=== PATIENT | female | born 1955 | race Caucasian/White ===

== ENCOUNTER → 2018-02-18 | Outpatient (CLI) | payer OTHER ==
[~2018-02-18] MED LIST: CARISOPRODOL 3350 MG PO; CRANBERRY400 MG; FLEXERIL PO; MULTIVITAMINS1 EAC7; OXYCODON-ACETA1 EAC1 PO; POTASSIUM99 M1; SINGULAIR 10 MG10 MG; VERTICALM25 MG PO; VITAMIN D400 UNI1; ZYRTEC10 M2; [UNRECOGNIZED DRUG - OTHER]
== END ==
LOC: M.RAD 02-14 08:15
DX: Z12.31 Encounter for screening mammogram for malignant neoplasm of breast (principal)

== ENCOUNTER 2019-03-31 09:56 | Observation (INO) | payer MEDICARE, OTHER ==
[~2019-03-31] VITALS: Ht 177.8 cm; Wt 68.4 kg
[~2019-03-31 09:56] MED LIST changes: -MULTIVITAMINS1 EAC7; +MULTIVITAMINS1 EAC7 PO; -SINGULAIR 10 MG10 MG; +SINGULAIR 10 MG10 MG PO; -ZYRTEC10 M2; +ZYRTEC10 M2 PO
[2019-03-31 10:02] VITALS: BP 117/82
[2019-03-31] MEDS ORDERED: XANAX 0.5 MG0.5 MG PO (10:06)
[2019-03-31] MEDS ORDERED: FISH OIL 1,001000 M2 PO (10:07)
[2019-03-31] MEDS ORDERED: COLLAGEN PLUS1 EACH PO (10:07)
[2019-03-31] MEDS ORDERED: BREO ELLIPTA 11 EACH INH (10:07)
[2019-03-31] MEDS ORDERED: PROAIR HFA8.5 GM INH (10:07)
[2019-03-31 10:27] LABS: ABSOLUTE EOSINOPHILS 0.3 thou/uL (0.0-0.7); ABSOLUTE LYMPHOCYTES 0.9 thou/uL (0.8-5.3); ABSOLUTE MONOCYTES 0.6 thou/uL (0.0-1.2); ABSOLUTE NEUTROPHILS 2.5 thou/uL (1.6-8.1); BASOPHILS 0.6 %; EOSINOPHILS 7.8 %; HEMATOCRIT 45.4 % (37.0-47.0); HEMOGLOBIN 15.4 gm/dL (12.0-15.0); LYMPHOCYTES 20.2 %; MCH 31.8 pg (26.0-34.0); MCV 93.5 fL (80.0-100.0); MONOCYTES 14.9 %; MPV 9.1 fl. (7.2-11.1); NUCLEATED RBCS 0 /100WBC; PLATELET COUNT* 165 thou/uL (150-400); POLYS 56.5 %; RBC 4.86 mil/uL (4.20-5.00); RDW-CV 13.7 % (10.5-14.5); WBC 4.4 thou/uL (4.0-11.0)
[2019-03-31 10:39] LABS: ANION GAP 7 mmol/L (7-16); BUN 21 mg/dL (7-18); CALCIUM 9.9 mg/dL (8.5-10.1); CHLORIDE 101 mmol/L (98-107); CO2 30 mmol/L (21-32); CREATININE 1.2 mg/dL (0.6-1.3); GLUCOSE 99 mg/dL (70-99); POTASSIUM 4.4 mmol/L (3.5-5.1); SODIUM 138 mmol/L (136-145)
[2019-03-31 10:54] LABS: ALBUMIN 4.2 g/dL (3.4-5.0); ALKALINE PHOSPHATASE 86 U/L (46-116); CK-MB MASS 2.2 ng/mL (<0.5-3.6); LIPASE 121 U/L (73-393); MAGNESIUM 1.7 mg/dL (1.8-2.4); NT-PRO BRAIN NAT PEPTIDE 900 pg/mL (<300); SGOT 33 U/L (15-37); SGPT 35 U/L (30-65); TOTAL BILIRUBIN 0.9 mg/dL (<0.1-1.0); TOTAL PROTEIN 8.9 g/dL (6.4-8.2); TROPONIN-I LEVEL <0.06 ng/mL (<0.06)
[2019-03-31 11:03] LABS: APTT 26.6 Seconds (25.0-31.3); PROTIME 10.5 Seconds (9.20-11.50)
--- NOTE | 2019-03-31 13:30 | NUR ---
CARDIZEM DRIP INCREASED TO 15ML/HR VIA VERBAL ORDERS FROM DR STERLING
[2019-03-31 14:58] VITALS: BP 106/80
[2019-03-31 15:16] VITALS: BP 110/78
--- NOTE | 2019-03-31 16:20 | NUR ---
PATIENT PRESENTED TO 219 PER CART WITH AA EPISODE OF A FIB WITH RVR. PATIENT IS AELRT AND ORIENTED X 4. SHE DENIES CHEST PAIN AND SOA ON ARRIVAL. BEDSIDE ECHO PERFORMED. PATIENT ADMITTED AND ORIENTED TO THE ROOM. IV CARDIZEM IS INFUSING AT 15 ML/HR. PATIENT PLACED ON TELE MONITOR. TELE SHOWS CONTINUED AFIB. WILL CONTINUE TO MONITOR VS AND ASSESSMENTS.
--- NOTE | 2019-03-31 16:25 | EKG ---
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 Head: [facility] [place] 1955 Requested By: Rey Francisco Order Number: [id number] MD: Shin Bryan Measurements Intervals [place] Rate: 116 P: ND: QRS: 67 QRSD: 116 T: 67 QT: 368 QTc: 512 Interpretive Statements Atrial fibrillation with rapid ventricular response rate with aberrancy Baseline wander in lead(s) I,II,aVR Compared to ECG 02/18/2013 11:53:37 Sinus rhythm no longer present Ventricular premature complex(es) no longer present Incomplete right bundle-branch block no longer present Electronically Signed On 03-31-2019 16:25:02 CDT by Shin Bryan [email or web address] <ELECTRONICALLY SIGNED> By: Shin Bryan MD, FACC 03/31/19 1625 1004 1004 Shin Bryan MD, FACC /EPI
--- NOTE | 2019-03-31 16:42 | 2DMMODE ---
[place] [address] 2 D/M-MODE ECHOCARDIOGRAM Name: SALMA VELAZQUEZ Room: [address] ADM IN [facility]#: [id number] Admission: 03/31/19 Attend Phys: Yefri Guardado Discharge: Date of : 53 Date of Service: 03/31/19 1641 Report #: [id number] THIS REPORT FOR: //name// APPROVED REPORT Study performed: 03/31/2019 15:28:50 EXAM: Comprehensive 2D, Doppler, and color-flow Echocardiogram Patient Location: In-Patient Room #: 219 Status: routine BSA: 1.82 HR: 61 bpm BP: 106/80 mmHg Rhythm: Atrial Fibrillation Other Information Study Quality: Good Indications Atrial Fibrillation 2D Dimensions IVSd: 9.29 (7-11mm) LVOT Diam: 20.18 (18-24mm) LVDd: 44.71 mm PWd: 10.68 (7-11mm) LVDs: 22.64 (25-40mm) Aortic Root: 33.32 mm Volumes Left Atrial Volume (Systole) LA ESV Index: 25.50 mL/m2 Aortic Valve AoV Peak Paul.: 1.15 m/s AO Peak Gr.: 5.32 mmHg LVOT Max P.89 mmHg AO Mean Gr.: 2.40 mmHg LVOT Mean P.24 mmHg LVOT Max V: 0.85 m/s AO V2 VTI: 18.16 cm LVOT Mean V: 0.50 m/s FRANK (VTI): 3.15 cm2 LVOT V1 VTI: 17.90 cm Mitral Valve E/A Ratio: 1.70 MV Decel. Time: 190.62 ms MV E Max Paul.: 0.66 m/[place] [address] 2 D/M-MODE ECHOCARDIOGRAM Name: SALMA VELAZQUEZ Room: [address] IN ..#: [id number] Admission: 03/31/19 Attend Phys: Yefri Guardado Discharge: Date of : 53 Date of Service: 03/31/19 1641 Report #: [id number] MV PHT: 55.28 ms MVA (PHT): 3.98 cm2 TDI E/Lateral E': 5.08 E/Medial E': 5.50 Medial E' Paul.: 0.12 m/s Lateral E' Paul.: 0.13 m/s Pulmonary Valve PV Peak Paul.: 0.80 m/s PV Peak Gr.: 2.56 mmHg Tricuspid Valve RAP Estimate: 5.00 mmHg TR Peak Gr.: 26.65 mmHg RVSP: 31.00 mmHg PA Pressure: 31.00 mmHg Left Ventricle The left ventricle is normal size. There is normal LV segmental wall motion. There is normal left ventricular wall thickness. Left ventricular systolic function is normal. LVEF is 55-60%. This study is not technically sufficient to allow evaluation of the LV diastolic function due to atrial fibrillation. Right Ventricle The right ventricle is normal size. The right ventricular systolic function is normal. Atria The left atrium size is normal. The right atrium size is normal. Aortic Valve The aortic valve is normal in structure. No aortic regurgitation is present. There is no aortic valvular stenosis. Mitral Valve The mitral valve is normal in structure. Trace mitral regurgitation. No evidence of mitral valve stenosis. Tricuspid Valve The tricuspid valve is normal in structure. Mild tricuspid regurgitation. The RVSP is 30-35 mmHg. Pulmonic Valve The pulmonary valve is normal in structure. [place] [address] 2 D/M-MODE ECHOCARDIOGRAM Name: SALMA VELAZQUEZ Room: [address] IN [facility]#: [id number] Admission: 03/31/19 Attend Phys: Yefri Guardado Discharge: Date of : 53 Date of Service: 03/31/19 1641 Report #: [id number] Great Vessels The aortic root is normal in size. IVC is normal in size and collapses >50% with inspiration. Pericardium There is no pericardial effusion. <Conclusion> The left ventricle is normal size. There is normal left ventricular wall thickness. Left ventricular systolic function is normal. LVEF is 55-60%. Trace mitral regurgitation. Mild tricuspid regurgitation. The RVSP is 30-35 mmHg. <ELECTRONICALLY SIGNED> By: Shin Bryan MD, FACC 03/31/191640 40 40 Shin Bryan MD, FACC /INF
[2019-03-31 19:40] VITALS: BP 115/66
[2019-04-01] VITALS: BP 100/53
[2019-04-01 03:53] VITALS: BP 116/69
--- NOTE | 2019-04-01 07:49 | NUR ---
VSS. SEE MAR. SEE CHARTING. FALL PRECAUTIONS IN PLACE. HOURLY ROUNDING FOR CHARTING.
[2019-04-01 08:20] VITALS: BP 131/90
--- NOTE | 2019-04-01 11:27 | NUR ---
INITIAL ASSESSMENT: Pt evaluated for d/c planning needs. Reviewed chart and spoke with nurse and spouse. Pt is currently off unit for testing. Pt lives in house with spouse and was independent with ADL's prior to admission to the hospital. Pt remains active in the community and is still driving. Pt and her are retired. Pt uses no DME and has not had home health. Pt plans on returning home on d/c from hospital. Will remain available to assist as needed.
[2019-04-01 16:02] VITALS: BP 112/81
--- NOTE | 2019-04-01 16:19 | NUR ---
PT SOMEWHAT PROGRESSING TOWARDS GOALS THIS SHIFT. COMPLETED STRESS TEST. TELE REMAINS SR WITH MULTIPLE PAC'S AND PVC'S. MEDICATIONS CHANGED TO ORAL AMIODARONE THIS SHIFT. NO OTHER CONCERNS AT THIS TIME. CLWR. WCTM.
--- NOTE | 2019-04-01 16:25 | CARDNUC ---
[place] [address] CARDIAC NUCLEAR IMAGING REPORT Name: SALMA VELAZQUEZ Room: [address] IN [facility]#: [id number] Admission: 03/31/19 Attend Phys: Yefri Guardado Discharge: Date of : 53 Date of Service: 04/01/19 1625 Report #: [id number] THIS REPORT FOR: //name// APPROVED REPORT Imaging Protocol: Rest Tc-99m/Stress Tc-99m 1 day Study performed: 03/31/2019 14:46:00 Indication: Atrial Fibrillation Patient Location: In-Patient Room #: 219 Stress Tech: Sabi Davis Stress Nurse: Suzan Giraldo RN NM Tech:SIMBA Croft Ht: 5 ft 10 in Wt: 145 lbs BSA: 1.82 m2 BMI: 20.80 Medical History Medical History: mitral valve prolapse Medications: apixaban, amiodarone Allergies: n Cardiac Risk Factors: Age, FHX of CAD Exercise History: Physically active Resting Data Rest SPECT myocardial perfusion imaging was performed in supine position 30 minutes following the intravenous injection of 11.3 mCi of Tc-99m Sestamibi. Time of rest injection: 09:30 The images were gated to evaluate regional wall motion and calculate left ventricular ejection fraction. Administration Route: IV Administration Site: Right Arm Pharmacologic Stress Pharmacologic stress test was performed by injecting Regadenoson 0.4 mg IV push over 10-15 seconds immediately followed by the intravenous injection of 34.6 mCi of Tc-99m Sestamibi. Time of stress injection: 11:00 Administration Route: IV Administration Site: Right Arm Heart Rate at time of stress injection: 93 bpm. Gated Stress SPECT was performed 40 minutes [place] [address] CARDIAC NUCLEAR IMAGING REPORT Name: SALMA VELAZQUEZ Room: [address] IN ..#: [id number] Admission: 03/31/19 Attend Phys: Yefri Guardado Discharge: Date of : 53 Date of Service: 04/01/19 1625 Report #: [id number] The images were gated to evaluate regional wall motion and calculate left ventricular ejection fraction. Prone imaging was performed. Stress Test Details Stress Test: Pharmacologic stress testing performed using 0.4 mg of regadenoson per 5 mL given IV over 10 seconds. Reason for pharmacologic stress test: a fib. HR Max Heart Rate (APMHR): 156 bpm Resting HR: 66 bpm Target HR (85% APMHR): 132 bpm Max HR Achieved: 93 bpm % of APMHR: 59 Recovery HR: 80 bpm BP Resting BP: 121/86 mmHg Max BP: 130/76 mmHg Recovery BP: 112/76 mmHg ECG Resting ECG: Sinus Rhythm Stress ECG: Sinus Rhythm ST Change: None Arrhythmia: None Recovery ECG: Sinus Rhythm Recovery ST Change: None Recovery Arrhythmia: None Clinical Reason for Termination: Completed protocol Exercise duration: 0 min sec Exercise capacity: 1 METs The patient tolerated Lexiscan infusion without significant symptoms. Stress ECG Conclusion The baseline 12-lead EKG shows sinus rhythm without significant ST or T wave abnormality. EKGs obtained during and post Lexiscan infusion show sinus rhythm with no significant ST or T wave changes when compared baseline. There were no stress-induced arrhythmias. Study Quality Study: Good Artifact: [place] [address] CARDIAC NUCLEAR IMAGING REPORT Name: SALMA VELAZQUEZ Room: [address] IN [facility]#: [id number] Admission: 03/31/19 Attend Phys: Yefri Guardado Discharge: Date of : 53 Date of Service: 04/01/19 1625 Report #: [id number] At rest, the left ventricular ejection fraction was 59%.. Post stress, the left ventricular ejection was T6%.. TID = 0.92. Perfusion Normal left ventricular perfusion. Wall Motion Normal left ventricular wall motion. Nuclear Conclusion ECG Findings: negative for ischemia Clinical Findings: negative for ischemia Nuclear Findings: negative for ischemia Exercise Capacity: not assessed Left Ventricular Function: normal Risk Study: low Myocardial perfusion images show no defect to suggest infarct or ischemia. Left ventricular systolic function appears normal on gated studies. This is a low risk study. <Conclusion> The baseline 12-lead EKG shows sinus rhythm without significant ST or T wave abnormality. EKGs obtained during and post Lexiscan infusion show sinus rhythm with no significant ST or T wave changes when compared baseline. There were no stress-induced arrhythmias. <ELECTRONICALLY SIGNED> By: Shin Bryan MD, FACC 04/01/19 1625 1625 1625 Shin Bryan MD, FACC /INF
[2019-04-01] MEDS ORDERED: ELIQUIS5 MG PO (18:56)
[2019-04-01 18:58] VITALS: BP 112/81
[2019-04-01] MEDS ORDERED: PACERONE 200 M200 M1 PO (18:58)
--- NOTE | 2019-04-01 19:35 | NUR ---
IV REMOVED, INFORMATION GIVEN TO PT ABOUT FOLLOW UP AND MEDICATION. PRESCRIPTIONS GIVEN, PAPERWORK SIGNED. PT [facility] 1935 WITH .
--- NOTE | 2019-04-02 17:02 | CON ---
[address] [address] CONSULTATION Name: SALMA VELAZQUEZ Room: [address] Y[place] Turcios#: [id number] Admission: 03/31/19 Attend Phys: Izabela Willoughby Discharge: 04/01/19 Date of : 53 Report #: [id number] THIS REPORT FOR: //name// CC: Tamica Guardado INDICATION: Atrial fibrillation with rapid ventricular response rate. HISTORY OF PRESENT ILLNESS: The patient is very pleasant 63-year-old white female who was admitted to the Emergency Room with atrial fibrillation with rapid ventricular response rate. She has been having some low blood pressures at home with some occasional orthostatic symptoms. She denies chest pain. She is without other cardiac complaint at this time. She is not having any shortness of breath. She does have chronic allergy symptoms. PAST SURGICAL HISTORY: 1. Bladder suspension. 2. Tubal ligation. 3. Sinus surgery. 4. Right knee surgery. PAST MEDICAL HISTORY: 1. Mitral valve prolapse diagnosed 40 years ago. 2. Paroxysmal atrial fibrillation diagnosed today. FAMILY HISTORY: The patient's brother had some strokes. SOCIAL HISTORY: The patient is . She is retired. She drinks alcohol occasionally. She does not smoke. ALLERGIES: ASPIRIN, ERYTHROMYCIN, AND ASTELIN. HOME MEDICATIONS: Albuterol 2 puffs every 6 hours p.r.n., Xanax 0.5 mg at bedtime p.r.n., Zyrtec 10 mg daily, Flonase 1 spray each nostril daily, Breo Ellipta 1 puff daily as needed, acidophilus 4 tablets 3 times daily, Singulair 10 mg nightly, multivitamin 1 tablet daily. REVIEW OF SYSTEMS: A 14-point review of systems is positive for asthma, palpitations, seasonal allergies, medical allergies, ASPIRIN ALLERGY, triad asthma, depression and anxiety. PHYSICAL EXAMINATION: VITAL SIGNS: Blood pressure is 106/80, pulse is in the one-teens and irregular. GENERAL: This is a pleasant lady in no distress. Mood and affect appropriate. HEENT: Extraocular muscles intact. Mucous membranes moist. NECK: Shows no jugular venous distension. There are [place] [address] CONSULTATION Name: SALMA VELAZQUEZ Room: [address] [place]#: [id number] Admission: 03/31/19 Attend Phys: Izabela Willoughby Discharge: 04/01/19 Date of : 53 Report #: [id number] CHEST: Reveals clear lung dwyer without wheezes or rales. CARDIOVASCULAR: Reveals an irregularly irregular rhythm that is tachycardic without obvious gallop or murmur. ABDOMEN: Reveals normal bowel sounds. The abdomen is soft and nontender. EXTREMITIES: Shows no edema. Peripheral pulses palpable. SKIN: Warm and dry. DIAGNOSTIC DATA: A 12-lead EKG shows AFib with rapid ventricular response rate and bundle branch block intermittently. LABORATORY DATA: Reviewed. Electrolytes within normal limits. BUN 21, creatinine 1.2, serum glucose 99. LFTs within normal limits. Troponin less than 0.06 on 2 separate occasions. NT-proBNP 900. Coags within normal limits. White blood cell count 4.4, hemoglobin 15.4, and platelet count 165,000. IMPRESSION AND RECOMMENDATIONS: New onset atrial fibrillation with rapid ventricular response. Continue diltiazem drip. We will re-bolus for better rate control. We will obtain echocardiogram and stress test to further evaluate cardiac structure and function. We will check thyroid function studies. Further cardiac treatment or evaluation pending the results of those studies. <ELECTRONICALLY SIGNED> By: Shin Bryan MD, FACC 04/02/19 1702 1450 [id number] Bryan MD, FACC /nt
== END 2019-04-01 19:35 | disposition home or self-care (01) ==
LOC: M.ERS 09:56 → M.TBA-ER 12:06 → M.2W 12:06
PROVIDERS: Emergency Medicine; ADMIT Internal Medicine
DX: I48.91 Unspecified atrial fibrillation (principal); I48.2 Chronic atrial fibrillation; M62.838 Other muscle spasm; J45.909 Unspecified asthma, uncomplicated; I34.1 Nonrheumatic mitral (valve) prolapse; Z79.899 Other long term (current) drug therapy

== ENCOUNTER → 2019-05-25 | Outpatient (CLI) | payer MEDICARE ==
[~2019-05-25] MED LIST changes: +BREO ELLIPTA 11 EACH INH; +COLLAGEN PLUS1 EACH PO; +ELIQUIS5 MG PO; +FISH OIL 1,001000 M2 PO; +PACERONE 200 M200 M1 PO; +PROAIR HFA8.5 GM INH; +XANAX 0.5 MG0.5 MG PO
== END ==
LOC: M.RAD 10:40
DX: Z12.31 Encounter for screening mammogram for malignant neoplasm of breast (principal)